=== PATIENT | female | born 2005 | race African-American/Black ===

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

== ENCOUNTER 2025-05-23 06:17 | Emergency (ER) | payer MEDICAID, SELFPAY ==
[2025-05-23 06:55] LABS: BHCG - Serum POSITIVE (NEGATIVE); Pregs Control Background? CLEAR/WHITE (CLR/WHITE); Pregs Control Bar Appear? YES (CONTROL BAR)
[2025-05-23 07:01] LABS: #Basophils 0.1 thou/uL (0.0-0.2); #Eosinophils 0.0 thou/uL (0.0-0.7); #Lymphocytes 1.8 thou/uL (1.20-3.40); #Monocytes 0.5 thou/uL (0.11-0.59); #Neutrophils 6.3 thou/uL (1.40-6.50); %Basophils 1.3 % (0.0-1.0); %Eosinophils 0.3 % (0.0-10.0); %Lymphocytes 20.9 % (28.0-48.0); %Monocytes 6.1 % (0.0-4.0); %Neutrophils 71.5 % (31.0-61.0); Hematocrit 34.7 % (36.0-47.0); Hemoglobin 10.7 g/dL (12.0-16.0); Mean Corpuscular Hemoglobin 24.8 pg (25.0-35.0); Mean Corpuscular Volume 80.7 fl (78.0-98.0); Platelet Count 306 10x3/uL (130-400); Red Blood Cell (RBC) Count 4.30 mill/uL (4.00-5.20); White Blood Cell (WBC) Count 8.7 10x3/uL (4.8-10.8)
[2025-05-23 07:09] LABS: ALT (SGPT) 10 U/L (Less than 34); AST (SGOT) 16 U/L (11-34); Albumin 3.7 g/dL (3.1-4.5); Alkaline Phosphatase 52 U/L (40-100); Anion Gap 15 mmol/L (10-20); Anisocytosis SLIGHT = 6-15 cells (100X) (0-5/hpf); BUN (Urea Nitrogen) 9 mg/dL (8.4-21.0); Bilirubin, Total 0.4 mg/dL (0.3-1.2); Calc. Creatinine Clearance 0 mL/min (70-130); Calcium 9.2 mg/dL (7.8-10.44); Carbon Dioxide 21 mmol/L (22-29); Chloride 107 mmol/L (98-107); Globulin 3.7 g/dL (2.4-3.5); Glucose 95 mg/dL (70-105); Lipase 13 U/L (8-78); Magnesium 1.9 mg/dL (1.7-2.2); Potassium 3.9 mmol/L (3.5-5.1); Sodium 139 mmol/L (136-145)
[2025-05-23 07:10] LABS: Platelet Adequacy Comment Appears Adequate
== END 2025-05-23 08:40 | disposition short-term general hospital (02) ==
LOC: MADERS 06:17
DX: O99.891 Other specified diseases and conditions complicating pregnancy (principal); R10.84 Generalized abdominal pain; Z3A.00 Weeks of gestation of pregnancy not specified
CPT/HCPCS: 80053; 83690; 83735; 84702; 84703; 85025; 86900; 86901; 99284

== ENCOUNTER 2025-08-18 15:59 | Emergency (ER) | payer OTHER | END 2025-08-18 17:00 | disposition home or self-care (01) | LOC: MADERS 15:59 | DX: O99.512 Diseases of the respiratory system complicating pregnancy, second trimester (principal); J06.9 Acute upper respiratory infection, unspecified; Z3A.18 18 weeks gestation of pregnancy | CPT/HCPCS: 87428; Q0162 ==